=== PATIENT | male | born 1950 | race Two or more races ===

== ENCOUNTER 2020-05-18 09:55 | Outpatient (CLI) | payer OTHER ==
[2020-05-18] MEDS ORDERED: GADOTERATE 7.5 MMOL/15 ML VIAL ONE (13:44)
== END 2020-05-18 23:59 | disposition home or self-care (01) ==
LOC: CFH 09:55
PROVIDERS: ATTEND Family Medicine
DX: C22.0 Liver cell carcinoma (principal); R18.8 Other ascites; R16.1 Splenomegaly, not elsewhere classified
CPT/HCPCS: 74183; A9575